=== PATIENT | female | born 1975 | race Caucasian/White ===

== ENCOUNTER 2024-08-08 16:20 | Emergency (ER) | payer SELFPAY ==
[2024-08-08 16:21] VITALS: BMI 30.7
[2024-08-08 16:22] VITALS: BP 171/110; BP 182/111; PULSE 110; RESP 18; TEMP 36.6; O2SAT 97
--- NOTE | 2024-08-08 16:37 | XR_ITS ---
Examination: CT soft tissue neck, with intravenous contrast. 2-D coronal reconstructions. 2-D sagittal reconstructions. Date and time of exam :August 08, 2024 1018 hrs. Indications: Palpable swelling in the neck on the right side beginning one week ago. CTDI: vol (mGy):10.3 DLP: (mGycm):226 Technique: 1.25 mm axial sections of the neck of the obtained. Coronal and sagittal reconstructions have been obtained. Intravenous contrast administered 50 cc Isovue-370. Low dose protocols were performed. One or more of the following dose reduction techniques were used; automated exposure control, adjustment of the mA and/or KV according to patient size, use of iterative reconstruction technique. Findings: Large retention cyst left maxillary antrum Symmetrical nasopharynx oropharynx Right submental lymph nodes, the largest 10 mm, left submental lymph nodes the largest 11 mm Large venous channel external to the right sternocleidomastoid muscle 8 mm left thyroid nodule Normal epiglottis Impression: Prominent venous channel extradural of the right sternocleidomastoid muscle The larynx is normal Normal epiglottis 8mm left thyroid nodule Recommend ultrasound soft tissue neck follow-up of the knee palpable right neck mass
--- NOTE | 2024-08-08 16:37 | PD.EDRME ---
Rapid Medical Screening Exam RME Arrival date/time: 08/08/24 16:20 Chief Complaint: Dental/Oral/Throat Vital signs: Vital Signs Temperature 97.9 F 08/08/24 16:22 Pulse Rate 110 H 08/08/24 16:22 Respiratory Rate 18 08/08/24 16:22 Blood Pressure 171/110 H 08/08/24 16:22 Pulse Oximetry (%) 97 08/08/24 16:22 Oxygen Delivery Method Room Air 08/08/24 16:22 RME Narrative: Right neck swelling, painful swallowing x 1 week. Also reports recent broken tooth.
[2024-08-08 17:12] LABS: Basophils % (Auto) 0 % (0-2.5); Eosinophils # (Auto) 0.3 Thou/mm3 (0.0-0.5); Eosinophils % (Auto) 2 % (0-10); Hematocrit 45.5 % (36.0-46.0); Hemoglobin 15.1 g/dL (12.0-16.0); Immature Granulocytes % (Auto) 1 % (0-0); Immature Granulocytes Auto 0.06 Thou/mm3 (0.00-0.00); Lymphocytes # (Auto) 3.4 Thou/mm3 (1.0-4.8); Lymphocytes % (Auto) 27 % (10-50); Mean Corpuscular HGB Conc 33.2 g/dl (31.0-37.0); Mean Corpuscular Hemoglobin 32.1 pg (25.0-35.0); Mean Corpuscular Volume 97 fL (80-100); Monocytes # (Auto) 0.8 Thou/mm3 (0.0-0.8); Monocytes % (Auto) 6 % (0-12); Neutrophils # (Auto) 8.3 Thou/mm3 (1.8-7.7); Neutrophils % (Auto) 64 % (37-80); Nucleated Red Blood Cell % 0 /100 WBC (0); Platelet Count 365 Thou/mm3 (140-440); RDW Standard Deviation 46.1 fL (36.4-46.3); Red Blood Count 4.71 Miln/mm3 (4.00-5.20)
[2024-08-08 17:39] LABS: Alanine Aminotransferase 11 U/L (10-49); Albumin, Serum 4.6 gm/dL (3.5-5.0); Albumin/Globulin Ratio 1.8 (1.2-2.2); Alkaline Phosphatase 92 U/L (46-116); Anion Gap 6 (7-16); Aspartate Amino Transferase < 10 U/L (0-34); BUN/Creatinine Ratio 17 Ratio (12-20); Bilirubin,Total 0.3 mg/dL (0.3-1.2); Blood Urea Nitrogen 12 mg/dL (9-23); Calcium 9.2 mg/dL (8.3-10.6); Calcium (Corrected) 9.2 mg/dL (8.5-10.1); Carbon Dioxide 29.4 mMol/L (20.0-31.0); Chloride 106 mMol/L (98-107); Creatinine (Component) 0.7 mg/dL (0.6-1.3); Estimated Creatinine Clearance 101.7 mL/min (>60); Globulin 2.6 gm/dL (2.3-3.5); Glucose 97 mg/dL (74-106); Osmolality,Calculated 280 (275-295); Potassium 3.5 mMol/L (3.4-5.1); Sodium 141 mMol/L (136-145); Total Protein 7.2 gm/dL (5.7-8.2); eGFR > 60 See Note
[2024-08-08 17:46] LABS: Strep A Rapid Negative (Negative)
--- NOTE | 2024-08-08 20:05 | PC.NURSE ---
NO ANSWER AT ER LOBBY OR OUTSIDE ER TO BE PUT TO ROOM
--- NOTE | 2024-08-08 20:16 | PC.NURSE ---
NO ANSWER AT ER LOBBY TO BE PUT TO ROOM.
[2024-08-08 21:21] VITALS: BP 170/109; BP 171/104; PULSE 93; RESP 18; TEMP 36.6; O2SAT 98
--- NOTE | 2024-08-08 21:40 | PD.EDDENTL ---
ED Dental RME/HPI General Chief complaint: Dental/Oral/Throat Stated complaint: MASS TO RIGHT NECK x 1 WEEK Arrival date/time: 08/08/24 16:20 RME / HPI RME / HPI Narrative: DR. MORE MAIN ED EVALUATION: 49 year old female with past medical history significant for hypertension presents to the Emergency Department with complaints of right neck swelling and painful swallowing onset 1 week. Associated symptoms include a broken tooth. Related Data Allergies Allergy/AdvReac Type Severity Reaction Status Date / Time lisinopril Allergy Severe Hives Verified 08/08/24 16:24 sulfamethoxazole Allergy Severe Hives Verified 08/08/24 16:24 [From Bactrim] trimethoprim [From Bactrim] Allergy Severe Hives Verified 08/08/24 16:24 Review of Systems Review of Systems Systems Reviewed: All systems reviewed, normal except as documented Past Medical History Past Medical History CARDIAC: Positive Hypertension Social History SMOKING STATUS: Heavy (> 1 pack/day) SUBSTANCE USE: does not use ALCOHOL: Never ED Exam Narrative Physical exam: GENERAL APPEARANCE: alert and oriented x 4, well-developed, well-nourished, no acute distress VITALS: All vitals were reviewed and the pulse ox is 98% on room air, which is normal according to my interpretation. HEENT: Normocephalic, atraumatic; pupils equal, round, reactive to light; EOMI; mucous membranes pink, moist; oropharynx clear. Broken tooth. NECK: Supple LUNGS: CTABL; no wheezes, no rales, no rhonchi HEART: Regular rate, regular rhythm; normal S1, S2; no murmurs ABDOMEN: non distended; normal BS; soft, no tenderness, no guarding, no rebound; no masses, no organomegaly, no hernia BACK: no CVA tenderness EXTREMITIES: atraumatic; no edema NEUROLOGIC: awake; alert and oriented x4; cranial nerves II-XII grossly intact; no focal sensory or motor deficits PSYCHIATRIC: appropriate mood and affect SKIN: warm, dry, normal color; no rashes Course Quality Measures none Orders Category Date Time Status CT Screening NOW Care 08/08/24 16:[address] soft tissue neck w con Stat Exams 08/08/24 16:37 Completed US soft tissue head neck Stat Exams 08/09/24 01:10 Completed CBC Stat Lab 08/08/24 17:00 Completed CMP [Comprehensive Metabolic Panel] Stat Lab 08/08/24 17:00 Completed Strep A Rapid Stat Lab 08/08/24 17:28 Completed Ketorolac Inj [Toradol Inj] Med 08/09/24 04:30 Discontinued 15 mg IVP X1 ONE Vital Signs Vital signs: Vital Signs Temperature 97.9 F 08/08/24 16:22 Pulse Rate 110 H 08/08/24 16:22 Respiratory Rate 18 08/08/24 16:22 Blood Pressure 171/110 H 08/08/24 16:22 Pulse Oximetry (%) 97 08/08/24 16:22 Oxygen Delivery Method Room Air 08/08/24 16:22 Procedures -ED Smoking Cessation Time Spent Discussing Smoking Cessation w/Patient (min): 3 Patient Acknowledges Need for Cessation: Yes Additional Comments: The patient was counseled as to the multiple risks to their health from continued use of tobacco products. It was explained that continuing to smoke may lead to multiple short and joint terminal attack controller negative health consequences, including but not limited to mouth/esophageal/lung cancer, COPD, and heart disease. The patient states they understand these risks, and also understand the options and resources available to them to help them stop smoking. Nicotine replacement therapy, local hotlines, and local resources were discussed as viable options for helping them stop their tobacco use. The total time spent counseling the patient regarding tobacco cessation was 3 minutes. Dental / Oral MDM Narrative MDM Narrative:: I, Chasity Eli, am scribing for and in the presence of Dr. More. Patient data External records reviewed:: [facility] previous records (Reviewed last ED visit dated 11/26/22, discharged with the following: Abscess.) Clinical information provided by:: patient Social determinants that could affect healthcare access:: other (specify) (smoking) Patient has the following chronic illnesses:: Hypertension How is presenting disease/condition affected by chronic disease/condition?: uneffected by Evaluation data The following diagnostics were reviewed and interpreted by me:: lab results and radiology exam(s) Lab and/or radiology exams considered but not ordered:: none Interpretation Summary: Procedure(s): CT soft tissue neck w con Accession Number(s): [id number] cc: Jonn Nicole MD; NO PRIMARY/FAMILY,PHYSICIAN; Oneal Kelly PA-C~ Examination: CT soft tissue neck, with intravenous contrast. 2-D coronal reconstructions. 2-D sagittal reconstructions. Date and time of exam :August 08, 2024 1018 hrs. Indications: Palpable swelling in the neck on the right side beginning one week ago. CTDI: vol (mGy):10.3 DLP: (mGycm):226 Technique: 1.25 mm axial sections of the neck of the obtained. Coronal and sagittal reconstructions have been obtained. Intravenous contrast administered 50 cc Isovue-370. Low dose protocols were performed. One or more of the following dose reduction techniques were used; automated exposure control, adjustment of the mA and/or KV according to patient size, use of iterative reconstruction technique. Findings: Large retention cyst left maxillary antrum Symmetrical nasopharynx oropharynx Right submental lymph nodes, the largest 10 mm, left submental lymph nodes the largest 11 mm Large venous channel external to the right sternocleidomastoid muscle 8 mm left thyroid nodule Normal epiglottis Impression: Prominent venous channel extradural of the right sternocleidomastoid muscle The larynx is normal Normal epiglottis 8mm left thyroid nodule Recommend ultrasound soft tissue neck follow-up of the knee palpable right neck mass Dictated By: Jonn Nicole MD Medications / Prescriptions Medications or Prescriptions considered but not ordered:: none Medication administrations:: Medication Administration History Discontinued Medications Ketorolac Tromethamine (Ketorolac Inj 30 Mg/Ml Vial) 15 mg IVP X1 ONE Stop: 08/09/24 04:31 Last Admin: 08/09/24 04:38 Dose: Not Given Documented By: FRENCH Non-Admin Reason: Other, see note see above if any Consultations Consultation(s) initiated? (list below): No Diagnosis Dental Differential Diagnosis: dental abscess and other (broken tooth, tonsillitis, oral abscess) Most likely diagnosis given after review of the tests above:: Patient eloped Admission Indicated Admission indicated?: not indicated Admission Request Was there a request for admission?: No Disposition Plan Disposition Plan: other (specify) (Elopement) Discharge Plan Plan Patient Disposition: Elopement Prescriptions/Referrals Referrals: No Primary/Family,Physician [Primary Care Provider] - In 1 week Patient/Caregiver Discharge Instructions Print Language: Cam[place]onian
[2024-08-09 00:04] VITALS: BP 153/92; PULSE 67; RESP 16; TEMP 36.6; O2SAT 96
--- NOTE | 2024-08-09 01:10 | XR_ITS ---
Examination: Ultrasound soft tissue neck Technique: Multiple high resolution grayscale sonographic images soft tissue neck Exam date and time: August 09, 2024 0152 hrs. Indications: Palpable right-sided neck mass one week Findings: Large lateral neck venous channel noted, described on CT examination Mild enlargement of the right submandibular gland, 2.7 x 2.2 x 2.8 cm Impression: Large lateral neck venous channels noted, described on the CT examination
--- NOTE | 2024-08-09 04:22 | PRELIM_ITS ---
There is a right submandibular fossa mildly vascular mass versus prominent submandibular gland, Measu ring 2.7 x 2.2 x 2.8 cm. On series 1 image 44, there is the suggestion of a shadowing calcification in the right submandibular fossa, possibly within the salivary duct (not described by the technologis t). Numerous cervical lymph nodes. 4.3 x 1.0 cm venous varix in the right lateral neck.Prominent ri ght submandibular gland versus submandibular fossa mass. Consider sialoadenitis with possible ductal calculus. Recommend contrast enhanced CT for further evaluation. Report Electronically Signed By: Abhinav Love 08/09/2024 4:22:06 AM [EST]
--- NOTE | 2024-08-09 04:39 | PC.NURSE ---
PATIENT ELOPED, STATED THAT SHE WAS WAITING TO LONG FOR RESULTS. REFUSED PAIN MEDICATION THAT WAS ORDERED.
== END 2024-08-09 04:39 | disposition left against medical advice (07) ==
PROVIDERS: Physician Assistant; Emergency Provider Emergency Medicine
DX: E04.1 Nontoxic single thyroid nodule (principal); F17.210 Nicotine dependence, cigarettes, uncomplicated; Z71.6 Tobacco abuse counseling; Z53.29 Procedure and treatment not carried out because of patient's decision for other reasons
CPT/HCPCS: 36415; 70491; 76536; 80053; 85025; 87651; 99281; A4649; Q9967